=== PATIENT | female | born 1935 | race Caucasian/White ===

== ENCOUNTER → 2023-11-16 09:22 | Outpatient (REF) | payer MEDICARE, SELFPAY | LOC: HWRAD 09:22 | PROVIDERS: ATTENDING PHYSICIAN Podiatrist; FAMILY PHYSICIAN Family Medicine | DX: I80.201 Phlebitis and thrombophlebitis of unspecified deep vessels of right lower extremity (principal); E11.51 Type 2 diabetes mellitus with diabetic peripheral angiopathy without gangrene; B35.1 Tinea unguium; G47.62 Sleep related leg cramps | CPT/HCPCS: 93970 ==

== ENCOUNTER 2024-08-06 18:49 | Observation (INO) | payer MEDICARE, SELFPAY ==
[2024-08-06 13:12] VITALS: BP 146/72
--- NOTE | 2024-08-06 15:36 | ED.GENMED ---
History of Present Illness
General
Chief Complaint: Cough
Source: patient
Exam Limitations: none
Time Seen by Provider: 08/06/24 15:24
History of Present Illness
History of Present Illness:
89-year-old female started with cough 10 days ago. About 5 days ago she was diagnosed with influenza. Chest x-ray was done at the time and she was told was bronchitis. Started on doxycycline at that time. However she has had continual cough
mostly dry General Weakness fatigue dizziness lightheadedness some chest pain with coughing and symptoms of actually gotten worse the last few days.
Past History
Past History
ED Past Medical History: HTN and NIDDM
ED Past Surgical History: Orthopedic
Social History
Tobacco: Non-smoker
Review of Systems
Review of Systems
All Other Systems: Not applicable
Constitutional: Denies fever
ABD/GI: Reports no symptoms
Phy Exam
Physical Exam
Physical Exam:
GENERAL: Alert and oriented in no apparent distress
EYE: Orbits normal.
NECK: Supple
ENT: Pharynx without erythema
CARDIAC: Regular rate and rhythm with moderate midsystolic murmur
LUNGS: No respiratory distress. Recurrent dry cough. No wheezing rhonchi or rales
ABDOMEN: Soft, without focal tenderness or distention
NEUROLOGICAL: Alert and oriented , grossly non-focal
SKIN: Warm and dry, no rash or lesion, no discoloration, skin intact.
MUSCULOSKELETAL: Very minimal chronic appearing lower extremity edema. No erythema or warmth.
PSYCH: Normal and appropriate interaction.
Course
Orders/Labs/Results
Orders:
Orders
08/06/24 13:13
Chest [CR Chest - 2 Views ] Urgent
Comment:
Reason For Exam: cough
08/06/24 15:35
IV Insert/Care/Rem.- Treatment PRN
0.9% Sodium Chloride 500 ml [Nss] 500 ml IV BOLUS
Pulse Ox/cont/shift [RESP] Stat
Quantity: 1
08/06/24 15:36
Electrocardiogram (*1) Stat
Reason for Study: Other
Other Reason for Exam: chest pain
Cardiac Monitoring- Treatment ONCE
EKG- Treatment ONCE
08/06/24 16:02
Basic Metabolic Panel Urgent
COVID-19 Antigen Urgent
Source: Nasal Swab
Complete Blood Count/With Diff Urgent
Influenza A+B Rapid Molecular Urgent
STEVEN Source: Nasal Swab
Specimen Description:
08/06/24 17:44
Admit/Transfer Patient As Directed
Co-Sign Provider:
Level of Care: Observation services
Assign to:: Medical/Surgical
Physician / Group: [email or web address]
Diagnosis: Post viral flu syndrome, dry cough, acute bronchitis
Reason for Hospitalization: Post viral flu syndrome with bothersome dry cough
suspect element of acute bronchitis
Expected length of stay greater than two midnights?: Yes
ELOS- Estimated Length of Stay in days: 3
I certify the patient meets the requirements for IP care: Yes
08/06/24 17:46
Code Status As Directed
Resuscitation Status: Full Code
08/06/24 17:50
Hydrocodone Bit/Homatropine [Hycodan Syrup] 5 ml PO Q4HPRN PRN
08/06/24 18:04
Procalcitonin Routine
PCT Algorithmm Indication: Respiratory
Abnormal Lab Results
08/06/24
16:02
Glucose 129 H mg/dl
(70-99)
08/06/24 16:02
08/06/24 16:02
Vital Signs
Initial and Last Documented VS:
Initial Vital Signs
Temp Resp
99.2 F 20
08/06/24 13:10 08/06/24 13:10
Last Documented Vital Signs
Temp Resp BP
99.2 F 20 146/72
08/06/24 13:10 08/06/24 13:10 08/06/24 13:12
MDM/Problems Addressed
Differential Diagnosis Includes:
Most suspicious with ongoing flulike symptoms. Nontoxic. Chest pain likely secondary to coughing. Highly doubt pulmonary emboli. Generally weak however. No respiratory distress. Is on doxycycline. Possibility of secondary infection. Will
check labs EKG and chest x-ray.
*Radiology
Radiology exam reviewed: radiology read reviewed (Atelectasis versus pneumonia)
*Critical Care Note
Total Time (30-74mins, 75-104mins- exclusive of procedures): Not Applicable
Update Note
Update Note:
Patient very weak. Borderline pulse oxes. Does not feel she can handle this at home. Will admit as weakness recent flu possible pneumonia
ED Attending Note
-
Portions of this chart may have been created with voice recognition software.� Occasional wrong word or��sound alike� substitutions may have occurred due to the inherent limitations of voice recognition software.
Discharge Plan
Departure
Patient Disposition: Admit
Date of Disposition: 08/06/24
Time of Disposition: 17:24
Presentation/result/management discussed w/ accepting MD/DO: Hospitalist
Discharge Problem:
General Weakness, Recent influenza, Possible pneumonia
Interventions
Interventions:
*Risk Screen - Suicide Last Done: 08/06/24 18:56
*Neglect/Abuse Screening Last Done: 08/06/24 18:56
ED- Fall Risk Assessment Last Done: 08/06/24 15:32
*Nursing Disposition Last Done: 08/06/24 18:56
ED- Pulmonary Assessment Last Done: 08/06/24 15:32
[2024-08-06] MEDS: NSS 500 IV (16:16)
[2024-08-06 16:40] LABS: % Basophils 0.1 % (0-2); % Eosinophils 0.7 % (0-6); % Immature Granulocytes 0.4 % (0-0.5); % Lymphocytes 33.2 % (20.5-51.1); % Monocytes 8.7 % (1.7-9.3); % Neutrophils 56.9 % (42.2-75.2); Absolute Eosinophils 0.1 10^3/uL (0-0.7); Absolute Lymphocytes 2.4 10^3/uL (1.2-3.4); Absolute Monocytes 0.6 10^3/uL (0.1-0.6); Absolute Neutrophils 4.1 10^3/uL (1.4-6.5); Hematocrit 40.7 % (37.0-47.0); Hemoglobin 13.6 g/dL (12.0-16.0); Mean Corp Hgb Conc. 33.4 g/dL (33.0-37.0); Mean Corpuscular Hgb 29.2 pg (27.0-31.0); Mean Corpuscular Volume 87.5 fL (81.0-99.0); Mean Platelet Volume 9.4 fL (7.4-10.4); Nucleated Red Blood Cells % 0 %; Platelet Count 294 10^3/uL (130-400); Red Blood Cell Count 4.65 10^6/uL (4.20-5.40); Red Cell Dist. Width 13.4 % (11.5-14.5); White Blood Cell Count 7.2 10^3/uL (4.8-10.8)
[2024-08-06 16:56] LABS: COVID-19 Antigen Negative (Negative)
[2024-08-06 17:05] LABS: Blood Urea Nitrogen 17 mg/dl (7-17); Calcium 9.7 mg/dl (8.4-10.2); Carbon Dioxide 27 mmol/L (22-30); Chloride 101 mmol/L (98-107); Glucose 129 mg/dl (70-99); Sodium 138 mmol/L (135-145); eGFR > 60.00
--- NOTE | 2024-08-06 17:38 | HPS.HSE ---
Family Physician
-
Family Physician: Brian Richard
Chief Complaint
-
cough,
History of Present Illness
89F HX HTN, T2DM sen at ER
- onset of cough 10 days ago
- about 5 days ago she was diagnosed with influenza.
- currently on PO doxycycline
- cont. dry cough
- asso. general weakness fatigue dizziness lightheadedness some chest pain with coughing
- symptoms of actually gotten worse the last few days
Medical History
Past Medical History
Past Medical History: Reports HTN and NIDDM
Past Surgical History: Reports None
Social History
Tobacco: Non-smoker
Alcohol: None
Family History
Family History: Not pertinent
Allergies / Home Medications
Allergies reflects when Allergies were last updated in [facility].
Home Medications with original date entered in [facility]
Allergy/Medication List:
Allergies
Allergy/AdvReac Type Severity Reaction Status Date / Time
Penicillins Allergy Unknown Verified 07/11/22 21:52
Sulfa (Sulfonamide Allergy Unknown Verified 07/11/22 21:52
Antibiotics)
Review of Systems
-
Constitutional: Reports See HPI
EENT: Reports No Symptoms
Respiratory: Reports Cough (mostly dry )
Cardiac: Reports No Symptoms
Abdomen/GI: Reports No Symptoms
: Reports No Symptoms
Musculoskeletal: Reports No Symptoms
Skin: Reports No Symptoms
Neurological: Reports No Symptoms
Endocrine: Reports No Symptoms
Hematologic/Lymphatic: Reports No Symptoms
Psych: Reports No Symptoms
Physical Exam
Vital Signs
Vital Signs
Temp Resp BP
99.2 F 20 146/72
08/06/24 13:10 08/06/24 13:10 08/06/24 13:12
Physical Exam
General: No Apparent Distress, Comfortable and Conversant
HEENT: NormoCephalic and Anicteric
Cardiac: S1/S2, Regular Rhythm and Murmur (soft )
Breast: Deferred by me
GI: Soft, Non Tender, Non Distended and Normal Bowel Sounds
Genito-urinary: Deferred by me
Musculoskeletal: No Edema
Skin: Warm and Dry
Neuro: AO x 3
Psych: Calm
Laboratory Results
-
08/06/24 16:02
08/06/24 16:02
Data Reviewed
-
Diagnostic Radiology: Report Reviewed by me
Lab Data: Labs Reviewed by me
Impression/Plan
-
Vital Signs
Temp Resp BP
99.2 F 20 146/72
08/06/24 13:10 08/06/24 13:10 08/06/24 13:12
Laboratory Tests
08/06/24
16:02
WBC 7.2
Hgb 13.6
Plt Count 294
Creatinine 0.6
eGFR > 60.00
NEG Flu A & B
CXR:
Patchy predominantly linear densities within the left lower lobe of the lung, most suggestive of atelectasis.
Patchy pneumonia could have a similar appearance.
Peribronchial thickening suggesting bronchitis as well.
Last hospitalist admission:
ASSESSMENT & PLAN
Post viral flu syndrome with bothersome dry cough
suspect element of acute bronchitis
Patchy predominantly linear densities within the left lower lobe ; questionable PNA vs Atx
Recent PO Doxycycline
- check PCT
- Empiric Medrol dose pack
- DuoNeb qid and PRN
- Mucinex 1200mg BID
- Hycodan PRN for bothersome cough
- supportive care; Tylenol, IVF
T2DM
- Pending Rx reconciliation
- add ISS low
Essential HTN
- Pending Rx reconciliation
DVT Px: LMWH
Code: Full code
OBS MS
[2024-08-06 18:54] LABS: Procalcitonin < 0.05 ng/ml (0.0-0.25)
[2024-08-06 19:59] VITALS: BP 172/80
[2024-08-06 20:03] VITALS: BMI 31.3
[2024-08-06 20:25] VITALS: BP 172/88
--- NOTE | 2024-08-06 20:25 | W.PN.UPDATE ---
Addendum entered and electronically signed by MAURIZIO Atkins 08/07/24 06:47:
Vitals signs with normal limits, bs 144. No other neuro deficit noted
Original Note:
Update Note
Progress Note Update
[employer]/ Stroke Alert
RT eye ptosis, unequal pupils, and initially noted with RLE weakness by the staff. Vital signs
Patient seen by neurology, head CT and CTA head and neck ordered.
Head CT result with No evidence of acute intracranial abnormality.
CTA head/neck shows
-Enlarged left lobe of the thyroid gland with central calcification, as well as enlargement of the thyroid isthmus. In an 89-year-old, this most likely represents benign thyroid goiter. As warranted, consider further evaluation with thyroid
ultrasound.
-No evidence for hemodynamically significant stenosis of the carotid bulbs or proximal internal carotid arteries bilaterally.
-Tortuosity of the proximal internal carotid arteries bilaterally, extending medially into the posterior wall the pharynx.
-Focal narrowing of the proximal M1 portion of the right middle cerebral artery, diameter reduction of 50-60%, likely hemodynamically significant.
-No significant narrowing involving the left middle cerebral artery. No significant narrowing involving the anterior cerebral arteries laterally.
-No significant narrowing of the vertebral or basilar arteries. There is mild luminal irregularity of the proximal left posterior cerebral artery. Moderate diffuse luminal irregularity of the right posterior cerebral artery suggesting diffuse
atherosclerotic disease with multifocal moderate narrowing.
[2024-08-06 20:36] LABS: Glucose - Point of Care 144 mg/dl (70-99)
--- NOTE | 2024-08-06 20:40 | CON.NEURO ---
Consultation
Order
Date of Consultation: 08/06/24
Reason for Consult: Stroke alert
Called in at 20:24
Neurology Consultation Note.
HPI: This is an 89-year-old woman who presented to [facility] on 07/06/2024 with a cough and malaise. Stroke alert was initiated for anisocoria and right ptosis noted upon arrival to the floor. The patient is unaware of any new
deficits. She denied change in vision, strength or sensation. Ms. Tavarez reports an intermittent headache, worse with cough. She also mentions throat pain, which she attributes to the persistent coughing.
The patient has a history of stroke approximately 8-9 years ago, though the specific deficits are not detailed. She also reports a history of macular degeneration and a previous retinal hole in the left eye. The patient has undergone bilateral
cataract surgeries in the past.
ER VS: 146/72-172/80, 64, afebrile
EKG:NSR, QTc Int : 484 ms
PDMP: none
Labs: Glucose�129, normal sodium, creatinine, WBCs SARS-CoV-2,SARS-CoV-2 antigen�negative
CXR-patchy predominantly linear densities within the left lower lobe of the lung, most suggestive of atelectasis. Patchy pneumonia could have a similar appearance. Peribronchial thickening suggesting bronchitis as well.
PMH:HTN, DM, stroke with no residual deficits, polyneuropathy, history of retinal hole in the left eye, macular degeneration
PSH: Bilateral cataract surgery
SH: Lives alone, independent in ADLs
FH: Not contributory to current presentation
All: Sulfas, penicillin
ROS: Positive for cough, malaise
General: Well developed. In no acute distress.
Cardio: Regular rate and rhythm without murmur. Extremities are without cyanosis or edema.
Neuro:
Mental Status: Alert, oriented to self, place. Follows complex requests. No aphasia or hemineglect.
Cranial Nerves: OD 3.5 mm, surgical, OS 2.5 mm, surgical. EOMs full. Visual wu full to confrontation. R ptosis. No nystagmus. Face symmetric. Mildly impaired hearing AU. Tongue midline. No dysarthria.
Motor: Normal bulk and tone. No pronator or arm drift. Strength 5/5 throughout. No clonus.
Reflexes: Negative grasp bilaterally
Sensory: Negative extinction to DSS
Coordination: No dysmetria or tremor
Gait: deferred
Assessment and Plan:
I. 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 Not a candidate for IV TNK. Rule out right carotid artery dissection and PCom aneurysm
II. History of stroke without residual deficits
III. History of recent influenza
-Continue Telemetry monitoring
-Aspiration precautions
-Cautious lowering of BP by approximately 15 % during the first 24 hours is SBP >220 mmHg or diastolic blood pressure >120 mmHg
-Restart antihypertensive medications during if BP>140/90 mmHg who are neurologically stable in 24 to 48 hours after stroke onset
-Brain MRI without fermin
-Please follow-up stat CT head, CTA head and neck
-Restart Plavix 75 mg once a day if no acute abnormalities on neuroimages
-DVT prophylaxis.
I personally reviewed all radiology and labs along with past medical records pertinent to current medical problems. Total time spent in patient care is 45 minutes.
Thank you for allowing us to participate in the care of this patient. We will continue to follow. Please do not hesitate to contact us with any questions or concerns.
Subjective/Objective
Subjective Data
Date of Service: August 06, 2024
Objective Data
Vital Signs
Temp Pulse Resp BP Pulse Ox
37.2 C 64 20 172/80 92
08/06/24 19:59 08/06/24 19:59 08/06/24 19:59 08/06/24 19:59 08/06/24 19:59
Lab Results
08/06/24 16:02
08/06/24 16:02
Sodium 138 mmol/L (135-145) 08/06/24 16:02
Potassium mmol/L (3.5-5.1) 08/06/24 16:02
BUN 17 mg/dl (7-17) 08/06/24 16:02
Glucose 129 mg/dl (70-99) H 08/06/24 16:02
Calcium 9.7 mg/dl (8.4-10.2) 08/06/24 16:02
Patient Allergies
Penicillins Allergy (Verified 07/11/22 21:52)
Unknown
Sulfa (Sulfonamide Antibiotics) Allergy (Verified 07/11/22 21:52)
Unknown
Medications
-
Active Medications
Generic Name Dose Route Start Last Admin
Trade Name Freq PRN Reason Stop Dose Admin
Acetaminophen 650 mg 08/06/24 20:00
Acetaminophen 325 Mg Tablet PO 09/03/24 19:59
Q4HWA CADY
Albuterol/Ipratropium 3 ml 08/06/24 20:00
Ipratropium 0.5/Albuterol 3 Mg (3 Ml Ampul) INH
R QID CADY
Protocol
Albuterol/Ipratropium 3 ml 08/06/24 19:44
Ipratropium 0.5/Albuterol 3 Mg (3 Ml Ampul) INH
R Q4HPRN PRN
shortness of breath
Protocol
Bisacodyl 10 mg 08/06/24 19:44
Bisacodyl 10 Mg Rectal Suppository RECTAL 09/03/24 19:43
[id number] PRN
constipation
Dextrose 12.5 grams 08/06/24 19:44
Dextrose 50% (0.5 Grams/Ml) 50 Ml Syringe IV 09/03/24 19:43
[id number] PRN
hypoglycemia
Protocol
Enoxaparin Sodium 40 mg 08/06/24 19:44
Enoxaparin Sodium 40 Mg/0.4 Ml Syringe SC 09/03/24 19:43
QPM CADY
Glucagon 1 mg 08/06/24 19:44
Glucagon 1 Mg Vial IM 09/03/24 19:43
PRN PRN
hypoglycemia
Protocol
Guaifenesin 1,200 mg 08/06/24 20:00
Guaifenesin 600 Mg Extended Release Tablet PO 09/03/24 19:59
Q12 CADY
Hydrocodone Bit/Homatropine Methylb 5 ml 08/06/24 17:50
Hydrocodone Bit/Homatropine Oral Syrup 5 Ml Cup PO 08/20/24 17:49
Q4HPRN PRN
for bothersome cough
Sodium Chloride 1,000 mls @ 60 mls/hr 08/06/24 19:44
Nss IV
.[id number] CADY
Insulin Aspart 0 units 08/07/24 07:30
Insulin Aspart Low Resistance 300 Units/3 Ml Pen.Injctr SC 09/04/24 07:29
AC CADY
Protocol
Methylprednisolone 20 mg 08/07/24 08:00
Methylprednisolone 4 Mg Tablet PO 08/07/24 08:01
ONCE ONE
Methylprednisolone 16 mg 08/08/24 08:00
Methylprednisolone 4 Mg Tablet PO 08/08/24 08:01
ONCE ONE
Methylprednisolone 12 mg 08/09/24 08:00
Methylprednisolone 4 Mg Tablet PO 08/09/24 08:01
ONCE ONE
Methylprednisolone 8 mg 08/10/24 08:00
Methylprednisolone 4 Mg Tablet PO 08/10/24 08:01
ONCE ONE
Methylprednisolone 4 mg 08/11/24 08:00
Methylprednisolone 4 Mg Tablet PO 08/11/24 08:01
ONCE ONE
Polyethylene Glycol 17 grams 08/06/24 19:44
Polyethylene Glycol Powder 17 Grams Packet PO 09/03/24 19:43
DAILYPRN PRN
constipation
Senna/Docusate Sodium 1 tablet 08/06/24 19:44
Docusate W/Senna (Juanis-Colace) Tablet PO 09/03/24 19:43
BIDPRN PRN
constipation
Sodium Chloride 0 flush 08/06/24 19:00
Sodium Chloride 0.9% (Flush) Syringe IV 09/03/24 18:59
PER PROTOCOL CADY
Home Medications
�Medication �Instructions �Recorded
acetaminophen 500 mg tablet 1,000 mg PO Q6HPRN PRN mild pain 08/06/24
amlodipine 10 mg tablet 10 mg PO DAILY 08/06/24
carvedilol 12.5 mg tablet 12.5 mg PO BID 08/06/24
clopidogrel 75 mg tablet 75 mg PO DAILY 08/06/24
latanoprost 0.005 % eye drops 1 drp BOTH EYES HS 08/06/24
lisinopril 20 mg tablet 20 mg PO DAILY 08/06/24
metformin 500 mg tablet 500 mg PO BID 08/06/24
peg 400-propylene glycol (PF) 0.4 1 drp BOTH EYES DAILYPRN PRN dry 08/06/24
%-0.3 % eye drops in a dropperette eyes
(Systane (PF))
rosuvastatin 5 mg tablet 5 mg PO DAILY 08/06/24
Vital Signs and Labs
-
Vital Signs and Labs:
Vital Signs
Temp Pulse Resp BP Pulse Ox
37.2 C 64 20 172/80 92
08/06/24 19:59 08/06/24 19:59 08/06/24 19:59 08/06/24 19:59 08/06/24 19:59
Lab Results
08/06/24 16:02
08/06/24 16:02
Sodium 138 mmol/L (135-145) 08/06/24 16:02
Potassium mmol/L (3.5-5.1) 08/06/24 16:02
BUN 17 mg/dl (7-17) 08/06/24 16:02
Glucose 129 mg/dl (70-99) H 08/06/24 16:02
Calcium 9.7 mg/dl (8.4-10.2) 08/06/24 16:02
Medications
-
Medications:
Generic Name Dose Route Start Last Admin
Trade Name Freq PRN Reason Stop Dose Admin
Acetaminophen 650 mg 08/06/24 20:00
Acetaminophen 325 Mg Tablet PO 09/03/24 19:59
Q4HWA CADY
Albuterol/Ipratropium 3 ml 08/06/24 20:00
Ipratropium 0.5/Albuterol 3 Mg (3 Ml Ampul) INH
R QID CADY
Protocol
Albuterol/Ipratropium 3 ml 08/06/24 19:44
Ipratropium 0.5/Albuterol 3 Mg (3 Ml Ampul) INH
R Q4HPRN PRN
shortness of breath
Protocol
Bisacodyl 10 mg 08/06/24 19:44
Bisacodyl 10 Mg Rectal Suppository RECTAL 09/03/24 19:43
[id number] PRN
constipation
Dextrose 12.5 grams 08/06/24 19:44
Dextrose 50% (0.5 Grams/Ml) 50 Ml Syringe IV 09/03/24 19:43
[id number] PRN
hypoglycemia
Protocol
Enoxaparin Sodium 40 mg 08/06/24 19:44
Enoxaparin Sodium 40 Mg/0.4 Ml Syringe SC 09/03/24 19:43
QPM CADY
Glucagon 1 mg 08/06/24 19:44
Glucagon 1 Mg Vial IM 09/03/24 19:43
PRN PRN
hypoglycemia
Protocol
Guaifenesin 1,200 mg 08/06/24 20:00
Guaifenesin 600 Mg Extended Release Tablet PO 09/03/24 19:59
Q12 CADY
Hydrocodone Bit/Homatropine Methylb 5 ml 08/06/24 17:50
Hydrocodone Bit/Homatropine Oral Syrup 5 Ml Cup PO 08/20/24 17:49
Q4HPRN PRN
for bothersome cough
Hydromorphone HCl 0.25 mg 08/06/24 20:48
Hydromorphone 0.25 Mg/0.5 Ml Syringe IV 08/06/24 20:49
NOW STA
Sodium Chloride 1,000 mls @ 60 mls/hr 08/06/24 19:44
Nss IV
.[id number] CADY
Insulin Aspart 0 units 08/07/24 07:30
Insulin Aspart Low Resistance 300 Units/3 Ml Pen.Injctr SC 09/04/24 07:29
AC CADY
Protocol
Methylprednisolone 20 mg 08/07/24 08:00
Methylprednisolone 4 Mg Tablet PO 08/07/24 08:01
ONCE ONE
Methylprednisolone 16 mg 08/08/24 08:00
Methylprednisolone 4 Mg Tablet PO 08/08/24 08:01
ONCE ONE
Methylprednisolone 12 mg 08/09/24 08:00
Methylprednisolone 4 Mg Tablet PO 08/09/24 08:01
ONCE ONE
Methylprednisolone 8 mg 08/10/24 08:00
Methylprednisolone 4 Mg Tablet PO 08/10/24 08:01
ONCE ONE
Methylprednisolone 4 mg 08/11/24 08:00
Methylprednisolone 4 Mg Tablet PO 08/11/24 08:01
ONCE ONE
Polyethylene Glycol 17 grams 08/06/24 19:44
Polyethylene Glycol Powder 17 Grams Packet PO 09/03/24 19:43
DAILYPRN PRN
constipation
Senna/Docusate Sodium 1 tablet 08/06/24 19:44
Docusate W/Senna (Juanis-Colace) Tablet PO 09/03/24 19:43
BIDPRN PRN
constipation
Sodium Chloride 0 flush 08/06/24 19:00
Sodium Chloride 0.9% (Flush) Syringe IV 09/03/24 18:59
PER PROTOCOL CADY
Home Medications
-
Home Medications
acetaminophen 500 mg tablet 1,000 mg PO Q6HPRN PRN mild pain 08/06/24
amlodipine 10 mg tablet 10 mg PO DAILY 08/06/24
carvedilol 12.5 mg tablet 12.5 mg PO BID 08/06/24
clopidogrel 75 mg tablet 75 mg PO DAILY 08/06/24
latanoprost 0.005 % eye drops 1 drp BOTH EYES HS 08/06/24
lisinopril 20 mg tablet 20 mg PO DAILY 08/06/24
metformin 500 mg tablet 500 mg PO BID 08/06/24
peg 400-propylene glycol (PF) 0.4 %-0.3 % eye drops in a dropperette (Systane (PF)) 1 drp BOTH EYES DAILYPRN PRN dry eyes 08/06/24
rosuvastatin 5 mg tablet 5 mg PO DAILY 08/06/24
[2024-08-06] MEDS: DILAUDID 0.25 MG IV (20:49)
[2024-08-06 21:05] VITALS: BP 173/85
[2024-08-06] MEDS: DUONEB 3 ML INH (21:18)
[2024-08-06 21:25] LABS: APTT 29.7 Sec (23.4-35.0)
[2024-08-06] MEDS: LOVENOX 40 MG SC (21:55)
[2024-08-06] MEDS: MEDROL 24 MG PO (21:56)
[2024-08-06] MEDS: TYLENOL 650 MG PO (21:56)
[2024-08-06] MEDS: MUCINEX 1200 MG PO (21:56)
[2024-08-06] MEDS: NSS 1000 IV (21:57)
[2024-08-06 23:00] VITALS: BP 144/70
[2024-08-06 23:55] LABS: Glucose - Point of Care 137 mg/dl (70-99)
--- NOTE | 2024-08-07 | RR ---
A Rapid Response was called on this patient, please see Rapid Response form.
1999
During admission assessment, unequal pupils, right irregular shaped pupil, R eye ptosis, and RLE weakness against gravity was noted. Pt c/o intermittent headache that worsens with cough. NIH 3
2005
Michael was contacted with concern fro the above assessment.
2019 provider arrived
2029 Stroke alert called.
[address]
2045
1x pain medication requested for leg pain in the RLE causing pt to be unable to complete CT scan. CT completed, medication administered.
--- NOTE | 2024-08-07 00:41 | PTCARENOTE ---
Addendum entered by Carmella Silveira RN 08/07/24 00:53:
Neb requested By RN fro Ex wheeze on the left side and inc WOB
Original Note:
Pt found to be between 88-90 % spo2. pt remained asymptomatic. pt aox4 with out change in assessment. Patient placexd on 4L NC-> spo2 increased to 92-93%. Michael informed of patient condition change.
[2024-08-07] MEDS: DUONEB 3 ML INH ×2 (01:27→07:17)
[2024-08-07] MEDS: TYLENOL 650 MG PO ×3 (01:46→09:33)
[2024-08-07 03:00] VITALS: BP 134/72
[2024-08-07] MEDS: TESSALON PERLES 200 MG PO ×2 (03:24→09:33)
[2024-08-07 06:26] LABS: Hematocrit 38.2 % (37.0-47.0); Hemoglobin 12.8 g/dL (12.0-16.0); Mean Corp Hgb Conc. 33.5 g/dL (33.0-37.0); Mean Corpuscular Hgb 29.1 pg (27.0-31.0); Mean Corpuscular Volume 86.8 fL (81.0-99.0); Mean Platelet Volume 9.5 fL (7.4-10.4); Platelet Count 303 10^3/uL (130-400); Red Cell Dist. Width 13.2 % (11.5-14.5); White Blood Cell Count 6.6 10^3/uL (4.8-10.8)
[2024-08-07 06:54] LABS: Blood Urea Nitrogen 14 mg/dl (7-17); Carbon Dioxide 25 mmol/L (22-30); Chloride 102 mmol/L (98-107); Estimated Creatinine Clearance 71 ml/min; Glucose 200 mg/dl (70-99); Potassium 4.1 mmol/L (3.5-5.1); Sodium 138 mmol/L (135-145); eGFR > 60.00
[2024-08-07 08:01] VITALS: BP 166/84
--- NOTE | 2024-08-07 08:08 | W.PN.HOSP.TC ---
Today's Communication/Plan
-
PT consult
Ambulatory pulse ox on room air
Assessment / Plan
Assessment / Plan
Gen-AAOx3, NAD
HEENT-NC, AT, anicteric, clear oral mm, surgical pupils
Neck-supple
CV-reg, no M, +S1/S2
Lungs-clear B/L
Abd-soft, NT, ND
Ext-no edema
Musculoskeletal-no cyanosis, clubbing
Skin-warm and dry
Neuro-grossly non-focal
Psych-calm, cooperative
Anisocoria -suspect postsurgical asymmetry of pupils due to cataract surgery. No focal neurologic findings on exam. Neurologist was consulted last night and she prefers to get brain MRI although I highly doubt that this patient had a stroke.
Postinfectious cough -her history is murky as she claims she was diagnosed with influenza at urgent care, but she was treated with doxycycline.
Flu and COVID testing here is negative. I see no evidence of pneumonia on chest x-ray. No signs or symptoms of sepsis.
Reportedly her pulse ox was in the 80% range last night and she was placed on 4 L nasal cannula oxygen. I question the validity of that pulse ox.
Check ambulatory pulse ox on room air.
Recent acute bronchitis -likely viral. Hold further antibiotics. Supportive care. Continue antitussive's. Medrol Dosepak initiated. I explained to patient that her postinfectious cough could take weeks to months to resolve. Procalcitonin noted
to be normal.
Essential hypertension -stable.
DM 2 with hyperglycemia -hyperglycemia related to steroids. She is on metformin at home. Use low resistance aspart scale.
Hyperlipidemia -rosuvastatin.
obesity due to excess calories
Full code
Dispo -hopefully discharge later today. Neurology wants brain MRI.
PT consult. Ambulatory pulse ox on room air.
Anticipated Discharge: Within 24 hours
Subjective/Interval History
-
Date of Service: August 07, 2024
Patient seen and examined. Complaining of cough.
Objective Data
-
Labs:
Laboratory Results
08/06/24 08/07/24
21:07 06:04
WBC 6.6
Hgb 12.8
Hct 38.2
Plt Count 303
APTT 29.7
Sodium 138
Potassium 4.1
Chloride 102
Carbon Dioxide 25
BUN 14
Creatinine 0.6
Glucose 200 H
Calcium 9.0
Vital Signs:
Vital Signs
Temp Pulse Resp BP Pulse Ox
98.5 F 83 16 134/72 95
08/07/24 03:00 08/07/24 07:18 08/07/24 07:18 08/07/24 03:00 08/07/24 07:18
I&O
08/06/24 08/07/24 08/08/24
06:59 06:59 06:59
Intake Total 312 / 312
Balance 312 / 312
Review of Systems
-
History Source: Patient
All other systems: Reviewed and negative
[2024-08-07 09:03] LABS: Glucose - Point of Care 210 mg/dl (70-99)
[2024-08-07 09:22] LABS: Glycohemoglobin (HgbA1c) 7.9 % (4.0-5.6)
[2024-08-07] MEDS: MUCINEX 1200 MG PO (09:33)
[2024-08-07] MEDS: MEDROL 20 MG PO (09:33)
[2024-08-07] MEDS: NOVOLOG FLEXPEN-LOW RESISTANCE 2 UNITS SC (09:40)
[2024-08-07] MEDS: PLAVIX 75 MG PO (09:40)
[2024-08-07 09:55] LABS: HDL Cholesterol 51 mg/dl; LDL Cholesterol, Calculated 45 mg/dl; Total Cholesterol 114 mg/dl (50-199); Triglyceride 91 mg/dl (10-149); Very Low Density Lipoprotein 18 mg/dl (0-30)
--- NOTE | 2024-08-07 10:01 | W.PN.NEURO.1 ---
Today's Communication / Plan
-
.
Neuro Assessment/Plan
Assessment
This is an 89-year-old female with a PMH of small left thalamic stroke, HTN, HLD, NIDDM, macular degeneration, neuropathy, left eye retinal tear who presented to on 08/06/24 with report of cough and malaise. Upon transfer from the ER to her
current room, it was noted by nursing staff that her right eyelid appeared droopy and her right pupil was irregular prompting a stroke alert to be called. Today (08/07/24), the patient is AAOx3 and adamant that those symptoms are not new and she has
looked this way for years, at least since her previous stroke almost 10 years ago.
-CT Head 08/06/23: No evidence of acute intracranial abnormality. ASPECT score: 10. 6 mm calcified meningioma arising from the superolateral right frontal inner table of the calvarium. In the anterior aspect of the right lentiform nucleus, there is a
5 mm x 4 mm x 10 mm focus of decreased density, suggesting a small focus of old lacunar infarction
-CTA Head/Neck 08/06/23: Enlarged left lobe of the thyroid gland with central calcification, as well as enlargement of the thyroid isthmus. In an 89-year-old, this most likely represents benign thyroid goiter. As warranted, consider further
evaluation with thyroid ultrasound. No evidence for hemodynamically significant stenosis of the carotid bulbs or proximal internal carotid arteries bilaterally. Tortuosity of the proximal internal carotid arteries bilaterally, extending medially
into the posterior wall the pharynx. Focal narrowing of the proximal M1 portion of the right middle cerebral artery, diameter reduction of 50-60%, likely hemodynamically significant. No significant narrowing involving the left middle cerebral
artery. No significant narrowing involving the anterior cerebral arteries laterally. No significant narrowing of the vertebral or basilar arteries. There is mild luminal irregularity of the proximal left posterior cerebral artery. Moderate diffuse
luminal irregularity of the right posterior cerebral artery suggesting diffuse atherosclerotic disease with multifocal moderate narrowing. There is no CT angiographic evidence for intracranial aneurysm.
I. Chronic right ptosis and anisocoria. Not a candidate for IV TNK due to chronicity. Neuro imaging negative for right carotid artery dissection and PCom aneurysm.
II. History of left thalamic stroke, patient cannot recall symptoms associated with this event but she returned to her baseline.
III. History of recent influenza.
Plan
-Okay to resume home clopidogrel 75mg PO daily.
-No role for MRI brain imaging at this point as patient notes symptoms are chronic.
-Obtain records from [facility] as an outpatient.
-LDL goal <70. LDL is 45. Continue home rosuvastatin 5mg daily.
-Goal normoglycemia, hbA1c is 7.9.
-Provide patient with a stroke education packet.
-Follow-up with Neurology as-needed as an outpatient.
Subjective/Objective
Subjective Data
Date of Service: August 07, 2024
No acute events overnight. Patient reports feeling good today. She is AAOx3 and adamant that her right eyelid drooping and irregular pupil shape is chronic and has been that way for at least 10 years. When looking in a mirror today she reports that
her face/eyes look normal. She denies any headache, dizziness, diplopia, vision changes, speech/swallow difficulty, focal numbness, weakness, chest pain, palpitations, and shortness of breath.
Objective Data
Vital Signs
Temp Pulse Resp BP Pulse Ox
98.1 F 78 18 166/84 98
08/07/24 08:01 08/07/24 08:01 08/07/24 08:01 08/07/24 08:01 08/07/24 08:01
Lab Results
08/07/24 06:04
08/07/24 06:04
APTT 29.7 Sec (23.4-35.0) 08/06/24 21:07
Sodium 138 mmol/L (135-145) 08/07/24 06:04
Potassium 4.1 mmol/L (3.5-5.1) 08/07/24 06:04
BUN 14 mg/dl (7-17) 08/07/24 06:04
Glucose 200 mg/dl (70-99) H 08/07/24 06:04
Calcium 9.0 mg/dl (8.4-10.2) 08/07/24 06:04
LDL Cholesterol, Calc 45 mg/dl 08/07/24 06:04
Patient Allergies
Penicillins Allergy (Verified 07/11/22 21:52)
Unknown
Sulfa (Sulfonamide Antibiotics) Allergy (Verified 07/11/22 21:52)
Unknown
LDL Level: <70, continue statin
Review of Systems
-
History Source: Patient
EENT: Negative Blurry Vision, Decreased Vision or Swallowing Difficulty
Respiratory: Cough; Negative Trouble Breathing
Cardiac: Negative Chest Pain or Palpitations
Abdomen/GI: Negative Nausea
Neuro: Numbness (chronic diabetic neuropathy BLE); Negative Dizzy, Headache or Weakness
Physical Exam
-
General: No Apparent Distress
Eyes: Negative No Ptosis (right ptosis) or PERRLA (left pupil 3 round, BR. R pupil irregular, 3, sluggish.)
HEENT: Normocephalic and Atraumatic
Neck: Full Range of Motion
Respiratory: No Dyspnea
GI: Non-distended
Skin: Unremarkable
Extremities: No Clubbing, No Cyanosis and Edema +1
Psych: Unremarkable
Extended Neurological Exam
Mood & Affect: Mood Unremarkable and Affect Unremarkable
Attention Span & Concentration: Awake, Alert, Interactive and No Difficulty with 2 Step Request
Memory: Unremarkable (AAOx3) and Able to Recall
Tremor: Hand Tremor Absent and Head Tremor Absent
Involuntary Movement: None
Speech: Quality Unremarkable, Quantity Unremarkable and Rate of Production Unremarkable
Cranial Nerve II: Left Eye: Pupillary Reactivity Unremarkable, Pupillary Size Unremarkable and Visual Vázquez Intact
Cranial Nerve II: Right Eye: Visual Vázquez Intact; Negative Pupillary Reactivity Unremarkable (sluggish) or Pupillary Size Unremarkable (3, irregular)
Cranial Nerves III, IV, : Extraocular Movement: Extraocular Movement Full in all Directions
Cranial Nerve V: Facial Sensation: Intact to Light Touch
Cranial Nerve VII: Facial Symmetry: Normal Facial Symmetry
Cranial Nerve VIII: Hearing: Unremarkable Hearing to Normal Conversational Volume
Cranial Nerves IX, X: Palate Movement: Palate Elevation Symmetric
Cranial Nerve XI: Shoulder Shrug: Unremarkable
Cranial Nerve XII: Tongue Protusion: Midline
Muscle Strength, Overall: Full Throughout
Muscle Bulk & Tone: Bulk Unremarkable and Tone Unremarkable
Pronator Drift: No Drift in Upper Extremities and No Drift in Lower Extremities
Deep Tendon Reflexes: Trace Throughout
Cold Sensation: Reduced Severely Distally
Vibration Sensation: Reduced Severely Distally
Touch Sensation: Double Simultaneous Stimulation Unremarkable
Coordination: [id number] Testing Unremarkable
Babinski Sign: Absent Bilaterally
Modified Turin Score (MRS)
-
Modified Marion Scale (mRS): No significant disability. Able to carry out usual activities.
Score: 1
Data Reviewed
-
CT-A: Report Reviewed and Image Reviewed
CT Head: Report Reviewed and Image Reviewed
Labs: Report Reviewed
Lipid Profile: Report Reviewed
HgbA1C: Report Reviewed
Reviewed with: Physician and Patient
NIH Stroke Score
Subsequent NIH Scale
Date of Subsequent NIH Scale: 08/07/24
Time of Subsequent NIH Scale: 09:30
NIH Stroke Score
Level of Consciousness: 0 - Alert
LOC Questions: 0-Answers both correctly
LOC Commands: 0-Performs both correctly
Best Horizontal Gaze: 0-Normal
Visual Vázquez: 0=Normal, no visual loss
Facial Palsy: 1=Minor paralysis
Motor - Right Arm: 0=No drift 10 seconds
Motor - Left Arm: 0=No drift 10 seconds
Motor - Right Le-No drift 5 seconds
Motor - Left Le-No drift 5 seconds
Limb Ataxia: 0-Absent
Sensation: 0-Normal
Best Language: 0-No aphasia
Dysarthria: 0-Normal
Extinction and Inattention: 0-No abnormality
Total Score:: 1
Modified Turin (mRS) Score
Modified Turin Scale (mRS): No significant disability. Able to carry out usual activities.
Score: 1
Medications
-
Active Medications
Generic Name Dose Route Start Last Admin
Trade Name Freq PRN Reason Stop Dose Admin
Acetaminophen 650 mg 08/06/24 20:00 08/07/24 09:33
Acetaminophen 325 Mg Tablet PO 09/03/24 19:59 650 mg
Q4HWA CADY Administration
Albuterol/Ipratropium 3 ml 08/06/24 20:00 08/07/24 07:17
Ipratropium 0.5/Albuterol 3 Mg (3 Ml Ampul) INH 3 ml
R QID CADY Administration
Protocol
Albuterol/Ipratropium 3 ml 08/06/24 19:44 08/07/24 01:27
Ipratropium 0.5/Albuterol 3 Mg (3 Ml Ampul) INH 3 ml
R Q4HPRN PRN Administration
shortness of breath
Protocol
Benzonatate 200 mg 08/07/24 02:24 08/07/24 09:33
Benzonatate 100 Mg Capsule PO 09/04/24 02:23 200 mg
TIDPRN PRN Administration
cough
Bisacodyl 10 mg 08/06/24 19:44
Bisacodyl 10 Mg Rectal Suppository RECTAL 09/03/24 19:43
[id number] PRN
constipation
Clopidogrel Bisulfate 75 mg 08/07/24 10:00 08/07/24 09:40
Clopidogrel 75 Mg Tablet PO 09/04/24 09:59 75 mg
DAILY CADY Administration
Dextrose 12.5 grams 08/06/24 19:44
Dextrose 50% (0.5 Grams/Ml) 50 Ml Syringe IV 09/03/24 19:43
[id number] PRN
hypoglycemia
Protocol
Enoxaparin Sodium 40 mg 08/06/24 19:44 08/06/24 21:55
Enoxaparin Sodium 40 Mg/0.4 Ml Syringe SC 09/03/24 19:43 40 mg
QPM CADY Administration
Glucagon 1 mg 08/06/24 19:44
Glucagon 1 Mg Vial IM 09/03/24 19:43
PRN PRN
hypoglycemia
Protocol
Guaifenesin 1,200 mg 08/06/24 20:00 08/07/24 09:33
Guaifenesin 600 Mg Extended Release Tablet PO 09/03/24 19:59 1,200 mg
Q12 CADY Administration
Hydrocodone Bit/Homatropine Methylb 5 ml 08/06/24 17:50
Hydrocodone Bit/Homatropine Oral Syrup 5 Ml Cup PO 08/20/24 17:49
Q4HPRN PRN
for bothersome cough
Insulin Aspart 0 units 08/07/24 07:30 08/07/24 09:40
Insulin Aspart Low Resistance 300 Units/3 Ml Pen.Injctr SC 09/04/24 07:29 2 units
AC CADY Administration
Protocol
Methylprednisolone 16 mg 08/08/24 08:00
Methylprednisolone 4 Mg Tablet PO 08/08/24 08:01
ONCE ONE
Methylprednisolone 12 mg 08/09/24 08:00
Methylprednisolone 4 Mg Tablet PO 08/09/24 08:01
ONCE ONE
Methylprednisolone 8 mg 08/10/24 08:00
Methylprednisolone 4 Mg Tablet PO 08/10/24 08:01
ONCE ONE
Methylprednisolone 4 mg 08/11/24 08:00
Methylprednisolone 4 Mg Tablet PO 08/11/24 08:01
ONCE ONE
Polyethylene Glycol 17 grams 08/06/24 19:44
Polyethylene Glycol Powder 17 Grams Packet PO 09/03/24 19:43
DAILYPRN PRN
constipation
Senna/Docusate Sodium 1 tablet 08/06/24 19:44
Docusate W/Senna (Juanis-Colace) Tablet PO 09/03/24 19:43
BIDPRN PRN
constipation
Sodium Chloride 0 flush 08/06/24 19:00
Sodium Chloride 0.9% (Flush) Syringe IV 09/03/24 18:59
PER PROTOCOL CADY
Home Medications
�Medication �Instructions �Recorded
acetaminophen 500 mg tablet 1,000 mg PO Q6HPRN PRN mild pain 08/06/24
amlodipine 10 mg tablet 10 mg PO DAILY 08/06/24
carvedilol 12.5 mg tablet 12.5 mg PO BID 08/06/24
clopidogrel 75 mg tablet 75 mg PO DAILY 08/06/24
latanoprost 0.005 % eye drops 1 drp BOTH EYES HS 08/06/24
lisinopril 20 mg tablet 20 mg PO DAILY 08/06/24
metformin 500 mg tablet 500 mg PO BID 08/06/24
peg 400-propylene glycol (PF) 0.4 1 drp BOTH EYES DAILYPRN PRN dry 08/06/24
%-0.3 % eye drops in a dropperette eyes
(Systane (PF))
rosuvastatin 5 mg tablet 5 mg PO DAILY 08/06/24
benzonatate 100 mg capsule 200 mg (2 x 100 mg) PO TIDPRN PRN 08/07/24
cough #30 caps
guaifenesin 600 mg tablet, 1,200 mg (2 x 600 mg) PO Q12 #20 08/07/24
extended release 12 hr tabs
methylprednisolone 4 mg tablets in See Rx Instructions PO .COMPLEX 08/07/24
a dose pack (Medrol (Jesus)) #21 ea
[2024-08-07 10:05] VITALS: O2SAT 94
--- NOTE | 2024-08-07 10:11 | W.DS.TRANS ---
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
-
Discharge Instructions:
Discharge Diagnosis/Procedures Postinfectious cough
Diet Diabetic, Carb Controlled
Activity As tolerated
Driving Restrictions As prior to admission
Bathing Restrictions None
Instructions:
Stand-Alone Forms:
Changes to Home Medications: No
Discharge Medications:
DC Medications w/original date entered in [facility] [employer]
acetaminophen 500 mg tablet 1,000 mg PO Q6HPRN PRN mild pain 08/06/24
amlodipine 10 mg tablet 10 mg PO DAILY 08/06/24
carvedilol 12.5 mg tablet 12.5 mg PO BID 08/06/24
clopidogrel 75 mg tablet 75 mg PO DAILY 08/06/24
latanoprost 0.005 % eye drops 1 drp BOTH EYES HS 08/06/24
lisinopril 20 mg tablet 20 mg PO DAILY 08/06/24
metformin 500 mg tablet 500 mg PO BID 08/06/24
peg 400-propylene glycol (PF) 0.4 %-0.3 % eye drops in a dropperette (Systane (PF)) 1 drp BOTH EYES DAILYPRN PRN dry eyes 08/06/24
rosuvastatin 5 mg tablet 5 mg PO DAILY 08/06/24
benzonatate 100 mg capsule 200 mg (2 x 100 mg) PO TIDPRN PRN cough #30 caps 08/07/24
guaifenesin 600 mg tablet, extended release 12 hr 1,200 mg (2 x 600 mg) PO Q12 #20 tabs 08/07/24
methylprednisolone 4 mg tablets in a dose pack (Medrol (Jesus)) See Rx Instructions PO .COMPLEX #21 ea 08/07/24
Home Medication Changes
Pending Results: No
[2024-08-07 10:21] LABS: TSH Reflex To Free T4 < 0.02 uIU/ml (0.47-4.68)
[2024-08-07 10:50] LABS: Free T4 1.59 ng/dl (0.78-2.19)
--- NOTE | 2024-08-07 11:00 | PTCARENOTE ---
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 Demorest texted Dr. Carroll ro confirm if he wants her to continue on this medication.
--- NOTE | 2024-08-07 11:05 | PTCARENOTE ---
RN Flow patient transportation driver-Received tiger text from Dr. Carroll to stop doxycycline.
--- NOTE | 2024-08-07 11:20 | PTCARENOTE ---
Patient ready for discharge. Weaned to RA and ambulated with patient in hallway. SpO2 93-95% while ambulating on RA. No needs. Discharged to home, isidra took patient home.
--- NOTE | 2024-08-07 11:29 | CM ---
Patient seen bedside.
IA completed.
DUNN completed.
patient lives alone in an In law suite, 1 floor.
Independent prior to admission without assistive devices, although does have can e and walker.
Patient not current with VN, has not been to skilled rehab.
Niece will transport home.
D/C home today
PCP: Dr Richard
Pharmacy: [facility]
Plan: home no needs.
== END 2024-08-07 11:04 | disposition home or self-care (01) ==
LOC: 1 ACUTE 18:49
PROVIDERS: Nurse Practitioner Family; ADMITTING PHYSICIAN Internal Medicine; ATTENDING PHYSICIAN Hospitalist; CONSULT PHYSICIAN Psychiatry & Neurology Neurology; EMERGENCY PHYSICIAN Emergency Medicine; FAMILY PHYSICIAN Family Medicine
DX: R05.9 Cough, unspecified (principal); Z11.52 Encounter for screening for COVID-19; J20.9 Acute bronchitis, unspecified; J98.4 Other disorders of lung; I10 Essential (primary) hypertension; E11.65 Type 2 diabetes mellitus with hyperglycemia; Z86.73 Personal history of transient ischemic attack (TIA), and cerebral infarction without residual deficits; H57.02 Anisocoria; E78.5 Hyperlipidemia, unspecified; E66.09 Other obesity due to excess calories; Z68.31 Body mass index [BMI] 31.0-31.9, adult; H02.401 Unspecified ptosis of right eyelid; I44.7 Left bundle-branch block, unspecified; Z79.02 Long term (current) use of antithrombotics/antiplatelets; Z79.2 Long term (current) use of antibiotics; Z79.899 Other long term (current) drug therapy
CPT/HCPCS: 70450; 70496; 70498; 71046; 80048; 80061; 82962; 83036; 84145; 84439; 84443; 85025; 85027; 85730; 86041; 87502; 87811; 93005; 94640; 96360; 99285; G0378; Q9967